=== PATIENT | female | born 1940 | race Caucasian/White ===

== ENCOUNTER 2023-12-20 15:13 | Inpatient (IN) | payer MEDICARE, OTHER ==
[~2023-12-20] VITALS: Ht 167.6 cm; Wt 68.0 kg
[2023-12-20] MEDS ORDERED: ACET-868 PO (15:43)
[2023-12-20] MEDS ORDERED: MAG30ORA PO (15:43)
[2023-12-20] MEDS ORDERED: DIVA125T32 PO (15:43)
[2023-12-20] MEDS ORDERED: QUET25TA PO (15:43)
[2023-12-20] MEDS ORDERED: BISA10SU11 RC (15:43)
[2023-12-20] MEDS ORDERED: PANT40TA2 PO (15:43)
[2023-12-20] MEDS ORDERED: MEMA10TA PO (15:43)
[2023-12-20] MEDS ORDERED: BENA20TA9 PO (15:43)
[2023-12-20] MEDS ORDERED: MAGN400O6 PO (15:43)
[2023-12-20] MEDS ORDERED: CYAN-51 PO (15:43)
[2023-12-20] MEDS ORDERED: NA P133E RC (15:43)
[2023-12-20] MEDS ORDERED: QUET50TA PO (15:43)
[2023-12-20 15:55] LABS: BASOPHILS % (AUTO) 0.7 % (0.0-2.0); EOSINOPHILS # (AUTO) 0.1 K/uL (0.0-0.7); EOSINOPHILS % (AUTO) 1.5 % (0.0-6.0); HEMATOCRIT 35 % (33-45); HEMOGLOBIN 11.9 g/dL (11.5-14.8); LYMPHOCYTES # (AUTO) 2.7 K/uL (0.8-4.8); LYMPHOCYTES % (AUTO) 41.6 % (20.0-44.0); MEAN CORPUSCULAR HEMOGLOBIN 33 PG (26.0-33.0); MEAN CORPUSCULAR HGB CONC 34 g/dl (31.0-36.0); MEAN CORPUSCULAR VOLUME 95 fL (82-100); MONOCYTES # (AUTO) 0.6 K/uL (0.1-1.30); MONOCYTES % (AUTO) 9.4 % (2.0-12.0); NEUTROPHILS % (AUTO) 46.8 % (43.0-81.0); PLATELET COUNT (AUTO) 175 K/uL (150-450); RED BLOOD CELL COUNT(AUTO) 3.66 MIL/uL (4.0-5.2); RED CELL DISTRIBUTION WIDTH 15.3 % (11.5-15.0); WHITE BLOOD COUNT (AUTO) 6.5 K/uL (4.3-11.0)
[2023-12-20 16:06] LABS: CARBON DIOXIDE 27 mmol/L (21-32); CHLORIDE 107 mmol/L (98-107); CREATININE 1.1 mg/dL (0.6-1.3); GLUCOSE 107 mg/dL (74-106); POTASSIUM 4.1 mmol/L (3.5-5.1); SODIUM SERUM 141 mmol/L (136-145); UREA NITROGEN, BLOOD 22 mg/dL (7-18)
[2023-12-20 16:12] LABS: ALANINE AMINOTRANSFERASE 9 U/L (12-78); ALCOHOL, BLOOD < 3 mg/dL (0-10); ALKALINE PHOSPHATASE 48 U/L (46-116); ASPARTATE AMINOTRANSFERASE 11 U/L (15-37); BILIRUBIN,DIRECT 0.1 mg/dL (0.0-0.2); BILIRUBIN,TOTAL 0.5 mg/dL (0.2-1.0); TOTAL PROTEIN, SERUM 6.3 g/dL (6.4-8.2)
[2023-12-20 16:13] LABS: ACETAMINOPHEN <10 ug/ml (10-30); SALICYLATE 0.6 mg/dL (2.8-20.0)
[2023-12-20] MEDS ORDERED: OLANZAPINE 10 MG VIAL IM ONE (18:05)
[2023-12-20] MEDS: OLANZAPINE 10 MG VIAL IM ONE (18:27)
[2023-12-20 20:28] LABS: APPEARANCE,URINE CLEAR (CLEAR); BILIRUBIN,URINE NEGATIVE (NEGATIVE); BLOOD, URINE 2+ Ery/uL (NEGATIVE); COLOR,URINE YELLOW (YELLOW); KETONES,URINE NEGATIVE (NEGATIVE); LEUKOCYTE ESTERASE ,URINE NEGATIVE (NEGATIVE); NITRITE, URINE NEGATIVE (NEGATIVE); PROTEIN,URINE NEGATIVE (NEGATIVE); UGLUCOSE NEGATIVE (NEGATIVE)
[2023-12-20 20:38] LABS: ADD URINE CULTURE NO; BACTERIA,URINE None seen /HPF (None Seen); RBC,URINE 21-50 /HPF (0-2); WBC,URINE 0-2 /HPF (0-3)
[2023-12-20 20:43] LABS: AMPHETAMINE, URINE NEGATIVE (NEGATIVE); BARBITURATE, URINE NEGATIVE (NEGATIVE); BENZODIAZEPINE, URINE NEGATIVE (NEGATIVE); CANNABINOID, URINE NEGATIVE (NEGATIVE); COCCAINE, URINE NEGATIVE (NEGATIVE); OPIATE, URINE NEGATIVE (NEGATIVE); PHENCYCLIDINE SCREEN,URINE NEGATIVE (NEGATIVE)
[2023-12-21] MEDS ORDERED: TEMAZEPAM 7.5 MG CAPSULE PO PRN ×2 (00:30)
[2023-12-21] MEDS ORDERED: MAGNESIUM HYDROXIDE 30 ML UDC PO PRN (00:30)
[2023-12-21] MEDS ORDERED: ACETAMINOPHEN 325 MG TABLET PO PRN (00:30)
[2023-12-21] MEDS ORDERED: MAG HYDROX/AL HYDROX/SIMETH 30 ML UDC PO PRN (00:30)
[2023-12-21] MEDS ORDERED: LORAZEPAM 0.5 MG TABLET PO PRN ×2 (00:30)
[2023-12-21] MEDS: BLOOD SUGAR DIAGNOSTIC 1 EACH STRIP IN ONE (01:16)
[2023-12-21 01:23] VITALS: BP 137/80; TEMP 98; O2SAT 99
[2023-12-21 08:00] VITALS: BP 140/95; TEMP 98.2; O2SAT 94
[2023-12-21] MEDS: Z GUARD REMEDY 4 OZ OINT TP SCH (09:08)
[2023-12-21] MEDS: PANTOPRAZOLE 40 MG TABLET.DR PO SCH (09:13)
[2023-12-21] MEDS: BENAZEPRIL HCL 20 MG TABLET PO SCH (09:13)
[2023-12-21] MEDS: CYANOCOBALAMIN 500 MCG TABLET PO SCH (09:13)
[2023-12-21] MEDS: OXCARBAZEPINE 150 MG TABLET PO SCH (20:46)
[2023-12-21] MEDS: OLANZAPINE 2.5 MG TABLET PO SCH (20:46)
[2023-12-21 21:29] VITALS: BP 156/70; TEMP 98.2; O2SAT 97
[2023-12-22 06:47] LABS: BASOPHILS % (AUTO) 0.6 % (0.0-2.0); EOSINOPHILS # (AUTO) 0.1 K/uL (0.0-0.7); EOSINOPHILS % (AUTO) 0.8 % (0.0-6.0); HEMATOCRIT 37 % (33-45); HEMOGLOBIN 12.4 g/dL (11.5-14.8); LYMPHOCYTES # (AUTO) 2.9 K/uL (0.8-4.8); LYMPHOCYTES % (AUTO) 38.3 % (20.0-44.0); MEAN CORPUSCULAR HEMOGLOBIN 32 PG (26.0-33.0); MEAN CORPUSCULAR HGB CONC 33 g/dl (31.0-36.0); MEAN CORPUSCULAR VOLUME 95 fL (82-100); MONOCYTES # (AUTO) 0.8 K/uL (0.1-1.30); MONOCYTES % (AUTO) 10.4 % (2.0-12.0); NEUTROPHILS # (AUTO) 3.7 K/uL (1.8-8.9); NEUTROPHILS % (AUTO) 49.9 % (43.0-81.0); PLATELET COUNT (AUTO) 187 K/uL (150-450); RED BLOOD CELL COUNT(AUTO) 3.91 MIL/uL (4.0-5.2); RED CELL DISTRIBUTION WIDTH 14.9 % (11.5-15.0); WHITE BLOOD COUNT (AUTO) 7.5 K/uL (4.3-11.0)
[2023-12-22 07:12] LABS: CALCIUM, SERUM 9.1 mg/dL (8.5-10.1); CARBON DIOXIDE 28 mmol/L (21-32); CHLORIDE 109 mmol/L (98-107); CREATININE 0.9 mg/dL (0.6-1.3); GLUCOSE 91 mg/dL (74-106); POTASSIUM 3.9 mmol/L (3.5-5.1); SODIUM SERUM 146 mmol/L (136-145); UREA NITROGEN, BLOOD 20 mg/dL (7-18)
[2023-12-22 07:56] LABS: CHOLESTEROL 184 mg/dL (<200); HDL CHOLESTEROL 65 mg/dL (40-60); LDL 108 mg/dL (0-99); TRIGLYCERIDES 39 mg/dL (30-150)
[2023-12-22 08:00] VITALS: BP 136/90; TEMP 97.6; O2SAT 100
[2023-12-22 16:00] VITALS: BP 111/90; TEMP 98; O2SAT 96
[2023-12-22 20:30] VITALS: BP 133/75; TEMP 97.9; O2SAT 97
[2023-12-23 08:00] VITALS: BP 115/52; TEMP 97.9; O2SAT 99
[2023-12-23 16:00] VITALS: BP 128/89; TEMP 98.7; O2SAT 97
[2023-12-23 20:56] VITALS: BP 138/89; TEMP 98.4; O2SAT 96
[2023-12-23] MEDS: ZOLPIDEM TARTRATE 5 MG TABLET PO PRN (23:59)
[2023-12-24 08:00] VITALS: BP 123/77; TEMP 97.4; O2SAT 99
[2023-12-24 16:00] VITALS: BP 111/65; TEMP 97.8; O2SAT 96
[2023-12-24] MEDS: OLANZAPINE 2.5 MG TABLET PO SCH (20:10)
[2023-12-24 20:24] VITALS: BP 121/82; TEMP 97.9; O2SAT 98
[2023-12-25 08:00] VITALS: BP 106/94; TEMP 97.6; O2SAT 97
[2023-12-25] MEDS: OXCARBAZEPINE 150 MG TABLET PO SCH (14:13)
[2023-12-25 16:00] VITALS: BP 124/99; TEMP 98.2; O2SAT 97
[2023-12-25 20:00] VITALS: BP 125/92; TEMP 98; O2SAT 97
[2023-12-26 08:00] VITALS: BP 108/50; TEMP 97.7; O2SAT 98
[2023-12-26] MEDS: CLOTRIMAZOLE 1% 15 GM TUBE TP SCH (09:40)
[2023-12-26 20:00] VITALS: BP 151/86; TEMP 98; O2SAT 97
[2023-12-27 08:00] VITALS: BP 119/63; TEMP 97.7; O2SAT 93
[2023-12-27] MEDS ORDERED: Z GUARD REMEDY 4 OZ OINT TP SCH (09:00)
[2023-12-27] MEDS: ENSURE CLEAR 237 ML LIQUID (MIX BERRY) PO SCH (11:09)
[2023-12-27 16:00] VITALS: BP 107/71; TEMP 97.8; O2SAT 95
[2023-12-27] MEDS: OLANZAPINE 2.5 MG TABLET PO PRN (16:54)
[2023-12-27 20:00] VITALS: BP 116/47; TEMP 98.1; O2SAT 96
[2023-12-28 08:00] VITALS: BP 165/113; TEMP 98.3; O2SAT 95
[2023-12-28 16:00] VITALS: BP 123/69; TEMP 98.6; O2SAT 98
[2023-12-28 20:25] VITALS: BP 138/61; TEMP 97.9; O2SAT 98
[2023-12-29 08:00] VITALS: BP 128/86; TEMP 97.8; O2SAT 96
[2023-12-29 16:00] VITALS: BP 110/58; TEMP 98.6; O2SAT 95
[2023-12-29 21:03] VITALS: BP 113/66; TEMP 98.2; O2SAT 96
[2023-12-30 08:00] VITALS: BP 124/64; TEMP 97.9; O2SAT 98
[2023-12-30] MEDS: OLANZAPINE 2.5 MG TABLET PO SCH (09:01)
[2023-12-30 16:00] VITALS: BP 104/59; TEMP 97.7; O2SAT 100
[2023-12-30 20:00] VITALS: BP 131/84; TEMP 98.4; O2SAT 97
[2023-12-30 20:14] VITALS: BP 131/84; TEMP 98.4; O2SAT 97
[2023-12-31 08:00] VITALS: BP 110/59; TEMP 97.7; O2SAT 96
[2023-12-31] MEDS: OLANZAPINE 2.5 MG TABLET PO SCH (10:08)
[2023-12-31 16:19] VITALS: BP 110/89; TEMP 97.8; O2SAT 99
[2023-12-31 20:54] VITALS: BP 145/75; TEMP 98.1; O2SAT 99
[2024-01-01 08:00] VITALS: BP 154/77; TEMP 97; O2SAT 98
[2024-01-01 16:00] VITALS: BP 125/77; TEMP 98.4; O2SAT 100
[2024-01-01] MEDS: OLANZAPINE 2.5 MG TABLET PO SCH (20:12)
[2024-01-02 08:00] VITALS: BP 136/75; TEMP 97.7; O2SAT 97
[2024-01-02 16:00] VITALS: BP 114/58; TEMP 97.7; O2SAT 95
[2024-01-02 20:00] VITALS: BP 94/67; TEMP 97.7; O2SAT 98
[2024-01-03 08:00] VITALS: BP 114/61; TEMP 97.7; O2SAT 95
[2024-01-03 16:00] VITALS: BP 126/60; TEMP 98.1; O2SAT 95
[2024-01-03] MEDS: Z GUARD REMEDY 4 OZ OINT TP PRN (16:15)
[2024-01-03 20:00] VITALS: BP 132/80; TEMP 97.7; O2SAT 95
[2024-01-04 08:00] VITALS: BP 110/60; TEMP 98; O2SAT 98
[2024-01-04 16:00] VITALS: BP 124/57; TEMP 97.7; O2SAT 98
[2024-01-04 20:12] VITALS: BP 133/60; TEMP 97.9; O2SAT 98
[2024-01-05 08:00] VITALS: BP 120/60; TEMP 97.7; O2SAT 96
[2024-01-05] MEDS: OLANZAPINE 2.5 MG TABLET PO SCH (08:36)
[2024-01-05 16:00] VITALS: BP 113/99; TEMP 97.9; O2SAT 96
[2024-01-05 20:35] VITALS: BP 127/92; TEMP 97.9; O2SAT 97
[2024-01-06 08:00] VITALS: BP 107/59; TEMP 97.9; O2SAT 97
[2024-01-06 16:00] VITALS: BP 122/72; TEMP 97.8; O2SAT 96
[2024-01-06 20:27] VITALS: BP 149/79; TEMP 97.9; O2SAT 96
[2024-01-06] MEDS: OXCARBAZEPINE 150 MG TABLET PO SCH (21:18)
[2024-01-06] MEDS: OLANZAPINE 5 MG TABLET PO SCH (21:19)
[2024-01-07 08:00] VITALS: BP 126/70; TEMP 98.5; O2SAT 98
[2024-01-07] MEDS: OXCARBAZEPINE 150 MG TABLET PO SCH (08:55)
[2024-01-07 16:00] VITALS: BP 115/62; TEMP 98; O2SAT 98
[2024-01-07 20:48] VITALS: BP 109/50; TEMP 97.9; O2SAT 98
[2024-01-08 08:00] VITALS: BP 100/52; TEMP 97.9; O2SAT 100
== END 2024-01-08 11:20 | DRG 885 ==
LOC: ER 15:20 → GPS 23:39
PROVIDERS: ADMIT Psychiatry & Neurology Psychiatry
DX: F39 Unspecified mood [affective] disorder (principal); N18.9 Chronic kidney disease, unspecified; E44.0 Moderate protein-calorie malnutrition; F02.82 Dementia in other diseases classified elsewhere, unspecified severity, with psychotic disturbance; F02.84 Dementia in other diseases classified elsewhere, unspecified severity, with anxiety; F02.83 Dementia in other diseases classified elsewhere, unspecified severity, with mood disturbance; G93.49 Other encephalopathy; F29 Unspecified psychosis not due to a substance or known physiological condition; G30.9 Alzheimer's disease, unspecified; I12.9 Hypertensive chronic kidney disease with stage 1 through stage 4 chronic kidney disease, or unspecified chronic kidney disease; E88.09 Other disorders of plasma-protein metabolism, not elsewhere classified; G47.00 Insomnia, unspecified; Z79.899 Other long term (current) drug therapy; Z20.822 Contact with and (suspected) exposure to COVID-19; Z73.6 Limitation of activities due to disability; F41.9 Anxiety disorder, unspecified; Z95.0 Presence of cardiac pacemaker; Z68.24 Body mass index [BMI] 24.0-24.9, adult
CPT/HCPCS: 36415; 80048-TC; 80061-TC; 80076-TC; 81001; 85025-TC; 87081-TC; 97530-TC; G0480; J3490

== ENCOUNTER 2024-06-17 15:56 | Inpatient (IN) | payer MEDICARE, OTHER ==
[~2024-06-17] VITALS: Ht 167.6 cm; Wt 73.5 kg
[~2024-06-17 15:56] MED LIST: ACET-868 PO; BENA20TA9 PO; BISA10SU11 RC; CYAN-51 PO; MAG30ORA PO; MAGN400O6 PO; MEMA10TA PO; NA P133E RC; PANT40TA2 PO
[2024-06-17 17:08] LABS: BASOPHILS # (AUTO) 0.1 K/uL (0.0-0.2); BASOPHILS % (AUTO) 0.7 % (0.0-2.0); EOSINOPHILS # (AUTO) 0.1 K/uL (0.0-0.7); EOSINOPHILS % (AUTO) 1.1 % (0.0-6.0); HEMATOCRIT 39 % (33-45); HEMOGLOBIN 12.8 g/dL (11.5-14.8); LYMPHOCYTES # (AUTO) 3.7 K/uL (0.8-4.8); LYMPHOCYTES % (AUTO) 43.6 % (20.0-44.0); MEAN CORPUSCULAR HEMOGLOBIN 31 PG (26.0-33.0); MEAN CORPUSCULAR HGB CONC 33 g/dl (31.0-36.0); MEAN CORPUSCULAR VOLUME 95 fL (82-100); MONOCYTES # (AUTO) 0.8 K/uL (0.1-1.30); MONOCYTES % (AUTO) 8.8 % (2.0-12.0); NEUTROPHILS # (AUTO) 3.9 K/uL (1.8-8.9); NEUTROPHILS % (AUTO) 45.8 % (43.0-81.0); PLATELET COUNT (AUTO) 303 K/uL (150-450); RED BLOOD CELL COUNT(AUTO) 4.09 MIL/uL (4.0-5.2); RED CELL DISTRIBUTION WIDTH 13.4 % (11.5-15.0); WHITE BLOOD COUNT (AUTO) 8.6 K/uL (4.3-11.0)
[2024-06-17 17:14] LABS: CALCIUM, SERUM 8.6 mg/dL (8.5-10.1); CARBON DIOXIDE 29 mmol/L (21-32); CHLORIDE 111 mmol/L (98-107); CREATININE 1.1 mg/dL (0.6-1.3); GLUCOSE 94 mg/dL (74-106); SODIUM SERUM 146 mmol/L (136-145); UREA NITROGEN, BLOOD 18 mg/dL (7-18)
[2024-06-17 17:20] LABS: ALANINE AMINOTRANSFERASE 14 U/L (12-78); ALBUMIN 2.9 g/dL (3.4-5.0); ALCOHOL, BLOOD < 3 mg/dL (0-10); ALKALINE PHOSPHATASE 56 U/L (46-116); ASPARTATE AMINOTRANSFERASE 12 U/L (15-37); BILIRUBIN,DIRECT 0.1 mg/dL (0.0-0.2); BILIRUBIN,TOTAL 0.4 mg/dL (0.2-1.0); TOTAL PROTEIN, SERUM 6.8 g/dL (6.4-8.2)
[2024-06-17 17:23] LABS: ACETAMINOPHEN <10 ug/ml (10-30); SALICYLATE 0.8 mg/dL (2.8-20.0)
[2024-06-17 17:35] LABS: APPEARANCE,URINE CLEAR (CLEAR); BILIRUBIN,URINE NEGATIVE (NEGATIVE); BLOOD, URINE 2+ Ery/uL (NEGATIVE); COLOR,URINE YELLOW (YELLOW); KETONES,URINE NEGATIVE (NEGATIVE); LEUKOCYTE ESTERASE ,URINE NEGATIVE (NEGATIVE); NITRITE, URINE NEGATIVE (NEGATIVE); PROTEIN,URINE NEGATIVE (NEGATIVE); UGLUCOSE NEGATIVE (NEGATIVE)
[2024-06-17 17:54] LABS: ADD URINE CULTURE NO; AMPHETAMINE, URINE NEGATIVE (NEGATIVE); BACTERIA,URINE Few /HPF (None Seen); BARBITURATE, URINE NEGATIVE (NEGATIVE); BENZODIAZEPINE, URINE NEGATIVE (NEGATIVE); CANNABINOID, URINE NEGATIVE (NEGATIVE); COCCAINE, URINE NEGATIVE (NEGATIVE); OPIATE, URINE NEGATIVE (NEGATIVE); PHENCYCLIDINE SCREEN,URINE NEGATIVE (NEGATIVE); WBC,URINE 0-2 /HPF (0-3)
[2024-06-17] MEDS ORDERED: LORA-258 PO (19:44)
[2024-06-17] MEDS ORDERED: DIVA125T32 PO (19:44)
[2024-06-18 00:15] VITALS: BP 148/98; TEMP 98.5; O2SAT 99
[2024-06-18] MEDS ORDERED: QUETIAPINE FUMARATE 25 MG TABLET PO PRN ×2 (00:30)
[2024-06-18] MEDS ORDERED: QUETIAPINE FUMARATE 25 MG TABLET PO ONE (00:30)
[2024-06-18] MEDS ORDERED: ACETAMINOPHEN 325 MG TABLET PO PRN ×2 (00:30→01:00)
[2024-06-18] MEDS ORDERED: MAG HYDROX/AL HYDROX/SIMETH 30 ML UDC PO PRN (00:30)
[2024-06-18] MEDS ORDERED: MAGNESIUM HYDROXIDE 30 ML UDC PO PRN ×2 (00:30→01:00)
[2024-06-18] MEDS ORDERED: ZOLPIDEM TARTRATE 5 MG TABLET PO PRN (00:30)
[2024-06-18] MEDS: BLOOD SUGAR DIAGNOSTIC 1 EACH STRIP IN ONE (00:35)
[2024-06-18] MEDS ORDERED: BISACODYL SUPP (10 MG) 10 MG/SUPP.RECT SUPP.RECT RC PRN (01:00)
[2024-06-18] MEDS ORDERED: NA PHOS,M-B/NA PHOS,DI-BA 1 EA ENEMA RC PRN (01:00)
[2024-06-18 08:00] VITALS: BP 126/65; TEMP 97.9; O2SAT 98
[2024-06-18] MEDS: MEMANTINE HCL 5 MG TABLET PO SCH (09:00)
[2024-06-18] MEDS: CYANOCOBALAMIN 500 MCG TABLET PO SCH (09:00)
[2024-06-18] MEDS: BENAZEPRIL HCL 20 MG TABLET PO SCH (09:00)
[2024-06-18] MEDS: PANTOPRAZOLE 40 MG TABLET.DR PO SCH (09:00)
[2024-06-18] MEDS: DIVALPROEX SODIUM 125 MG TABLET.DR PO SCH (14:11)
[2024-06-18 16:00] VITALS: BP 114/82; TEMP 97.9; O2SAT 99
[2024-06-18 20:46] VITALS: BP 121/64; TEMP 98.1; O2SAT 98
[2024-06-18] MEDS: OLANZAPINE 10 MG TABLET PO SCH (21:21)
[2024-06-19 07:46] LABS: ALBUMIN 2.7 g/dL (3.4-5.0); CALCIUM, SERUM 8.4 mg/dL (8.5-10.1); CREATININE 1.1 mg/dL (0.6-1.3); POTASSIUM 3.6 mmol/L (3.5-5.1)
[2024-06-19 08:00] VITALS: BP 135/74; TEMP 97.7; O2SAT 96
[2024-06-19 08:00] LABS: CHOLESTEROL 168 mg/dL (<200); HDL CHOLESTEROL 56 mg/dL (40-60); LDL 107 mg/dL (0-99); TRIGLYCERIDES 68 mg/dL (30-150)
[2024-06-19 08:04] LABS: BILIRUBIN,TOTAL 0.5 mg/dL (0.2-1.0); TOTAL PROTEIN, SERUM 6.1 g/dL (6.4-8.2)
[2024-06-19 16:00] VITALS: BP 90/50; TEMP 97.5; O2SAT 95
[2024-06-19] MEDS: DIVALPROEX SODIUM 125 MG TABLET.DR PO SCH (20:30)
[2024-06-19] MEDS: OLANZAPINE 10 MG TABLET PO SCH (20:31)
[2024-06-19 21:01] VITALS: BP 127/79; TEMP 97.8; O2SAT 98
[2024-06-19] MEDS: ZOLPIDEM TARTRATE 5 MG TABLET PO PRN (22:44)
[2024-06-20 08:00] VITALS: BP 129/99; TEMP 98.1; O2SAT 97
[2024-06-20 16:58] VITALS: BP 119/55; TEMP 98; O2SAT 98
[2024-06-20 20:36] VITALS: BP 140/88; TEMP 98.1; O2SAT 97
[2024-06-21 08:36] VITALS: BP 113/74; TEMP 98.1; O2SAT 97
[2024-06-21 16:23] VITALS: BP 123/78; TEMP 98.1; O2SAT 95
[2024-06-21 21:24] VITALS: BP 114/73; TEMP 98.1; O2SAT 98
[2024-06-22 08:00] VITALS: BP 118/96; TEMP 98.1; O2SAT 98
[2024-06-22 16:00] VITALS: BP 135/80; TEMP 98.7; O2SAT 98
[2024-06-22 19:59] VITALS: BP 133/94; TEMP 97.9; O2SAT 97
[2024-06-22] MEDS: OLANZAPINE 2.5 MG TABLET PO ONE (21:02)
[2024-06-23 08:00] VITALS: BP 130/77; TEMP 97.8; O2SAT 98
[2024-06-23] MEDS: OLANZAPINE 10 MG TABLET PO SCH (08:56)
[2024-06-23] MEDS: DIVALPROEX SODIUM 125 MG TABLET.DR PO SCH (14:00)
[2024-06-23 16:00] VITALS: BP 120/74; TEMP 98.1; O2SAT 94
[2024-06-23] MEDS: OLANZAPINE 5 MG TABLET PO SCH (20:13)
[2024-06-23 20:25] VITALS: BP 116/73; TEMP 97.6; O2SAT 96
[2024-06-24 08:00] VITALS: BP 109/53; TEMP 97.9; O2SAT 100
[2024-06-24 15:30] VITALS: BP 161/68; TEMP 98.2; O2SAT 98
[2024-06-24 20:00] VITALS: BP 127/73; TEMP 97.6; O2SAT 95
[2024-06-24] MEDS: TRAZODONE 50 MG TABLET PO SCH (21:13)
[2024-06-25 08:00] VITALS: BP 126/76; TEMP 97.6; O2SAT 97
[2024-06-25] MEDS: DIVALPROEX SODIUM 125 MG CAP.SPRINK PO SCH (14:37)
[2024-06-25 16:00] VITALS: BP 118/101; TEMP 97.5; O2SAT 99
[2024-06-25 20:00] VITALS: BP 126/59; TEMP 98; O2SAT 97
[2024-06-25] MEDS ORDERED: DIVALPROEX SODIUM 125 MG CAP.SPRINK PO SCH (21:00)
[2024-06-26 08:00] VITALS: BP 116/79; TEMP 97.6; O2SAT 97
[2024-06-26 16:00] VITALS: BP 126/76; TEMP 98.6; O2SAT 98
[2024-06-26 20:00] VITALS: BP 104/58; TEMP 98.4; O2SAT 97
[2024-06-27 08:00] VITALS: BP 117/90; TEMP 98; O2SAT 98
[2024-06-27 16:00] VITALS: BP 112/64; TEMP 98; O2SAT 94
[2024-06-27 21:36] VITALS: BP 106/62; TEMP 98.2; O2SAT 98
[2024-06-28 08:00] VITALS: BP 125/58; TEMP 98.3; O2SAT 97
[2024-06-28 15:04] LABS: BASOPHILS # (AUTO) 0.1 K/uL (0.0-0.2); BASOPHILS % (AUTO) 0.8 % (0.0-2.0); EOSINOPHILS # (AUTO) 0.1 K/uL (0.0-0.7); EOSINOPHILS % (AUTO) 1.1 % (0.0-6.0); HEMATOCRIT 36 % (33-45); HEMOGLOBIN 12.3 g/dL (11.5-14.8); LYMPHOCYTES # (AUTO) 2.9 K/uL (0.8-4.8); LYMPHOCYTES % (AUTO) 28.2 % (20.0-44.0); MEAN CORPUSCULAR HEMOGLOBIN 32 PG (26.0-33.0); MEAN CORPUSCULAR HGB CONC 34 g/dl (31.0-36.0); MEAN CORPUSCULAR VOLUME 94 fL (82-100); MONOCYTES # (AUTO) 0.8 K/uL (0.1-1.30); MONOCYTES % (AUTO) 7.8 % (2.0-12.0); NEUTROPHILS # (AUTO) 6.4 K/uL (1.8-8.9); NEUTROPHILS % (AUTO) 62.1 % (43.0-81.0); PLATELET COUNT (AUTO) 228 K/uL (150-450); RED BLOOD CELL COUNT(AUTO) 3.83 MIL/uL (4.0-5.2); RED CELL DISTRIBUTION WIDTH 13.9 % (11.5-15.0); WHITE BLOOD COUNT (AUTO) 10.3 K/uL (4.3-11.0)
[2024-06-28 15:16] LABS: CALCIUM, SERUM 9.1 mg/dL (8.5-10.1); CREATININE 1.3 mg/dL (0.6-1.3); POTASSIUM 4.5 mmol/L (3.5-5.1)
[2024-06-28 15:22] LABS: BILIRUBIN,TOTAL 0.5 mg/dL (0.2-1.0); TOTAL PROTEIN, SERUM 7.1 g/dL (6.4-8.2)
[2024-06-28 15:36] VITALS: BP 135/70; TEMP 98.4; O2SAT 96
[2024-06-28 21:16] VITALS: BP 133/64; TEMP 98.4; O2SAT 97
[2024-06-29 08:00] VITALS: BP 127/52; TEMP 97.8; O2SAT 97
[2024-06-29 16:00] VITALS: BP 117/68; TEMP 97.7; O2SAT 98
[2024-06-29 20:24] VITALS: BP 119/61; TEMP 97.9; O2SAT 97
[2024-06-30 08:00] VITALS: BP 138/91; TEMP 98; O2SAT 97
[2024-06-30 10:01] VITALS: BP 138/91
== END 2024-06-30 12:05 | DRG 885 ==
LOC: ER 16:30 → GPS 23:21
PROVIDERS: ADMIT Psychiatry & Neurology Psychiatry; ATTEND Nurse Practitioner Acute Care
DX: F29 Unspecified psychosis not due to a substance or known physiological condition (principal); N18.9 Chronic kidney disease, unspecified; E44.0 Moderate protein-calorie malnutrition; E87.0 Hyperosmolality and hypernatremia; F02.83 Dementia in other diseases classified elsewhere, unspecified severity, with mood disturbance; F02.82 Dementia in other diseases classified elsewhere, unspecified severity, with psychotic disturbance; F02.84 Dementia in other diseases classified elsewhere, unspecified severity, with anxiety; G93.40 Encephalopathy, unspecified; F02.818 Dementia in other diseases classified elsewhere, unspecified severity, with other behavioral disturbance; G30.9 Alzheimer's disease, unspecified; E88.09 Other disorders of plasma-protein metabolism, not elsewhere classified; Z95.0 Presence of cardiac pacemaker; Z20.822 Contact with and (suspected) exposure to COVID-19; Z73.6 Limitation of activities due to disability; F41.9 Anxiety disorder, unspecified; I12.9 Hypertensive chronic kidney disease with stage 1 through stage 4 chronic kidney disease, or unspecified chronic kidney disease; G47.00 Insomnia, unspecified; Z79.899 Other long term (current) drug therapy; F39 Unspecified mood [affective] disorder; Z68.26 Body mass index [BMI] 26.0-26.9, adult; E16.2 Hypoglycemia, unspecified
CPT/HCPCS: 36415; 80048-TC; 80053-TC; 80061-TC; 80076-TC; 80164-TC; 81001; 82140-TC; 82962-TC; 85025-TC; 97110-TC; 97116-TC; 97530-TC; G0480